=== PATIENT | male | born 1955 | race Hispanic/Latino ===

== ENCOUNTER 2017-10-28 20:00 | Inpatient (IN) | payer OTHER ==
[~2017-10-28] VITALS: Ht 172.7 cm; Wt 76.7 kg
[~2017-10-28 20:00] MED LIST: ALBUMIN (HUMAN) 25% 50 ML IV ONE; CALCIUM CHLORIDE 100 MG/ML 10 ML SYG IVP ONE; HEPARIN SODIUM 1000UNIT/ML 10ML VIAL IV ONE; LIDOCAINE PF 2% 5ML ABBOJECT IVP ONE; MANNITOL 25% 50ML VIAL IV ONE; PHENYLEPHRINE HCL 10 MG/ML 1ML VIAL IV ONE; SODIUM BICARB 8.4% 50ML SYRINGE IVP ONE
[2017-10-28 20:15] LABS: BASOPHILS % (AUTO) 0.2 % (0.0-5.0); EOSINOPHILS % (AUTO) 0.5 % (0.0-8.0); HEMATOCRIT 41.3 % (42-54); LYMPHOCYTES % (AUTO) 23.7 % (21.0-51.0); MEAN CORPUSCULAR HEMOGLOBIN 29.9 pg (27.0-33.0); MEAN CORPUSCULAR VOLUME 90.6 fL (79-99); MONOCYTES % (AUTO) 7.2 % (3.0-13.0); NEUTROPHILS % (AUTO) 68.4 % (40.0-77.0); PLATELET COUNT (AUTO) 239 K/uL (130-400); RED BLOOD CELL COUNT(AUTO) 4.55 MIL/uL (4.50-6.20); RED CELL DISTRIBUTION WIDTH 13.7 % (11.0-15.5); WHITE BLOOD COUNT (AUTO) 7.3 K/uL (4.8-10.8)
[2017-10-28] MEDS ORDERED: SODIUM CHLORIDE 0.9% 500ML 500 ML IV ONE (20:21)
[2017-10-28] MEDS ORDERED: NITROGLYCERIN 0.4 MG SL TAB SL ONE (20:21)
[2017-10-28] MEDS ORDERED: ASPIRIN 325 MG TABLET ONE (20:21)
[2017-10-28] MEDS ORDERED: METOPROLOL TARTRATE 25 MG TAB ONE (20:21)
[2017-10-28 20:29] LABS: INR 1.02 (0.85-1.15); PARTIAL THROMBOPLASTIN TIME 27.9 SEC (26.3-35.5); PROTHROMBIN TIME 10.7 SEC (9.6-11.6)
[2017-10-28 20:31] LABS: CREATININE 1.1 mg/dL (0.5-1.5); POTASSIUM 4.2 mmol/L (3.5-5.1)
[2017-10-28 20:44] LABS: ALBUMIN 3.6 g/dL (3.5-5.0); BILIRUBIN,TOTAL 0.8 mg/dL (0.2-1.0); CREATINE KINASE MB 18.3 ng/mL (0.5-3.6); TOTAL PROTEIN, SERUM 7.3 g/dL (6.0-8.3)
[2017-10-28] MEDS ORDERED: ENOXAPARIN SODIUM 100 MG/1 ML SQ ONE (21:50)
[2017-10-29] VITALS (18 sets, daily range): BP systolic 89–112; BP diastolic 56–75
[2017-10-29] MEDS ORDERED: ESOM20CA60 PO (03:18)
[2017-10-29 05:03] LABS: BASOPHILS % (AUTO) 0.4 % (0.0-5.0); EOSINOPHILS % (AUTO) 0.6 % (0.0-8.0); HEMATOCRIT 38.7 % (42-54); MEAN CORPUSCULAR HEMOGLOBIN 30.7 pg (27.0-33.0); MEAN CORPUSCULAR VOLUME 90.3 fL (79-99); MONOCYTES % (AUTO) 8.8 % (3.0-13.0); NEUTROPHILS % (AUTO) 58.2 % (40.0-77.0); NUCLEATED RED BLOOD CELLS 0.1 % (0.0-0.19); PLATELET COUNT (AUTO) 231 K/uL (130-400); RED BLOOD CELL COUNT(AUTO) 4.29 MIL/uL (4.50-6.20); RED CELL DISTRIBUTION WIDTH 13.8 % (11.0-15.5); WHITE BLOOD COUNT (AUTO) 6.4 K/uL (4.8-10.8)
[2017-10-29 05:33] LABS: ALBUMIN 3.2 g/dL (3.5-5.0); BILIRUBIN,TOTAL 0.7 mg/dL (0.2-1.0); CREATINE KINASE MB 10.6 ng/mL (0.5-3.6); CREATININE 1.1 mg/dL (0.5-1.5); MAGNESIUM 1.9 mg/dL (1.80-2.40); POTASSIUM 4.8 mmol/L (3.5-5.1); TOTAL PROTEIN, SERUM 6.6 g/dL (6.0-8.3)
[2017-10-29] MEDS ORDERED: ENOXAPARIN SODIUM 40 MG/0.4 ML SYRINGE SQ SCH (09:00)
[2017-10-29] MEDS ORDERED: METOPROLOL TARTRATE 25 MG TAB PO SCH (09:00)
[2017-10-29] MEDS: ASPIRIN 81MG TAB.CHEW PO SCH (09:00)
[2017-10-29 12:57] LABS: CREATINE KINASE MB 10.4 ng/mL (0.5-3.6)
[2017-10-29 13:02] LABS: TROPONIN I 4.11 ng/mL (0.00-0.06)
[2017-10-29] MEDS ORDERED: NITROGLYCERIN 5 MG/ML 10 ML VIAL IV ONE (15:21)
[2017-10-29] MEDS ORDERED: BIVALIRUDIN 250 MG/VIAL IV ONE (15:21)
[2017-10-29] MEDS ORDERED: LIDOCAINE HCL MPF 1% 5ML VIAL ONE (15:22)
[2017-10-29] MEDS ORDERED: IOHEXOL-350 50ML VIAL IV ONE (15:22)
[2017-10-29] MEDS ORDERED: IOHEXOL 350 MG/ML 100ML INFUS..BTL IV ONE (15:22)
[2017-10-29] MEDS ORDERED: FUROSEMIDE 10 MG/ML 2ML VIAL ONE (16:52)
[2017-10-29] MEDS ORDERED: NITROGLYCERIN 50 MG/D5% WATER 1 BOT ONE (16:52)
[2017-10-29] MEDS ORDERED: METOPROLOL TARTRATE 1 MG/ML 5ML VIAL IV ONE ×4 (17:23→17:37)
[2017-10-29 19:52] LABS: CHOLESTEROL 195 mg/dL (<200); HDL CHOLESTEROL 33 mg/dL (29-71); LDL DIRECT 140 mg/dL (0-99); TRIGLYCERIDES 166 mg/dL (30-200)
[2017-10-29 19:55] LABS: HEMOGLOBIN A1C 5.9 % (4.0-6.0)
[2017-10-29 20:54] LABS: APPEARANCE,URINE Clear (CLEAR); BILIRUBIN,URINE Negative (NEGATIVE); COLOR,URINE Yellow (YELLOW); GLUCOSE, URINE (UA) Negative (NEGATIVE); KETONES,URINE 15 mg/dL (NEGATIVE); LEUKOCYTE ESTERASE ,URINE Negative (NEGATIVE); NITRATE,URINE Negative (NEGATIVE); OCCULT BLOOD,URINE Negative (NEGATIVE); PROTEIN,URINE Negative (NEGATIVE)
[2017-10-29] MEDS ORDERED: METOPROLOL TARTRATE 50 MG TAB PO SCH (21:00)
[2017-10-29] MEDS ORDERED: ATORVASTATIN CALCIUM 40 MG TABLET PO SCH (21:00)
[2017-10-29] MEDS: METOPROLOL TARTRATE 25 MG TAB PO SCH (21:00)
[2017-10-30] VITALS (10 sets, daily range): BP systolic 91–108; BP diastolic 59–74
[2017-10-30 03:51] LABS: HEMATOCRIT 38.8 % (42-54); MEAN CORPUSCULAR HEMOGLOBIN 30.6 pg (27.0-33.0); MEAN CORPUSCULAR HGB CONC 33.5 g/dL (32.0-36.0); MEAN CORPUSCULAR VOLUME 91.4 fL (79-99); PLATELET COUNT (AUTO) 259 K/uL (130-400); RED BLOOD CELL COUNT(AUTO) 4.25 MIL/uL (4.50-6.20); RED CELL DISTRIBUTION WIDTH 13.9 % (11.0-15.5)
[2017-10-30 04:03] LABS: INR 1.05 (0.85-1.15); PARTIAL THROMBOPLASTIN TIME 28.2 SEC (26.3-35.5)
[2017-10-30 04:09] LABS: CREATININE 1.1 mg/dL (0.5-1.5); MAGNESIUM 1.9 mg/dL (1.80-2.40); POTASSIUM 4.8 mmol/L (3.5-5.1); TOTAL PROTEIN, SERUM 6.4 g/dL (6.0-8.3)
[2017-10-30] MEDS: ASPIRIN 81MG TAB.CHEW PO SCH (09:00)
[2017-10-30] MEDS: METOPROLOL TARTRATE 25 MG TAB PO SCH (10:05)
[2017-10-30] MEDS ORDERED: OCTYL 2-CYANOACRYLATE 1 EACH TP ONE (10:57)
[2017-10-30] MEDS ORDERED: EPINEPHRINE 1 MG/ML 30ML VIAL IJ ONE ×2 (10:57)
[2017-10-30] MEDS ORDERED: NITROGLYCERIN 50 MG/D5% WATER 1 BOT ONE (10:58)
[2017-10-30] MEDS ORDERED: BACITRACIN 50,000 UNIT VIAL ONE (10:58)
[2017-10-30] MEDS ORDERED: PAPAVERINE HCL 30 MG/ML 2ML VIAL ONE (10:58)
[2017-10-30] MEDS ORDERED: CEFUROXIME SODIUM 1.5 GM VIAL IVP PRN (11:00)
[2017-10-30] MEDS ORDERED: POTASSIUM CHLORIDE 20MEQ/100ML 0 ML IV ONE (11:11)
[2017-10-30] MEDS ORDERED: SODIUM BICARB 50MEQ 50ML VIAL ONE ×3 (11:11→17:34)
[2017-10-30] MEDS ORDERED: THROMBIN-JMI 5000 UNIT/VIAL TP ONE (12:15)
[2017-10-30] MEDS ORDERED: VASOPRESSIN 20 UNITS/ML 1ML VIAL ONE (12:23)
[2017-10-30] MEDS ORDERED: NOREPINEPHRINE BITARTRATE 1 MG/1 ML ML IV ONE ×2 (13:06→17:15)
[2017-10-30] MEDS ORDERED: LIDOCAINE PF 2% 5ML ABBOJECT ONE ×2 (13:06→14:42)
[2017-10-30] MEDS ORDERED: HEPARIN SODIUM 1000UNIT/ML 10ML VIAL ONE ×2 (13:06→20:17)
[2017-10-30] MEDS ORDERED: CEFUROXIME SODIUM 1.5 GM VIAL ONE ×2 (13:06→16:39)
[2017-10-30] MEDS ORDERED: ESMOLOL HCL 10 MG/ML 10 ML VIAL ONE (13:06)
[2017-10-30] MEDS ORDERED: AMINOCAPROIC ACID 250 MG/ML 20 ML VIAL IV ONE (13:06)
[2017-10-30] MEDS ORDERED: EPINEPHRINE 1 MG/ML AMPULE ONE (13:06)
[2017-10-30] MEDS ORDERED: FENTANYL CITRATE PF 50 MCG/1 ML 20ML VIAL IJ ONE ×3 (13:07→16:41)
[2017-10-30] MEDS ORDERED: PROPOFOL 10 MG/ML 20ML VIAL IV ONE (13:07)
[2017-10-30] MEDS ORDERED: MIDAZOLAM HCL 1 MG/ML 5ML VIAL ONE (13:07)
[2017-10-30] MEDS ORDERED: ROCURONIUM 10MG/1ML SYR 10 MG/ML ML ONE ×2 (13:08→16:40)
[2017-10-30] MEDS ORDERED: AMIODARONE HCL 50 MG/ML 3 ML VIAL ONE ×2 (13:46→17:36)
[2017-10-30] MEDS ORDERED: LIDOCAINE 2G/250ML 250 ML IV ONE (13:48)
[2017-10-30] MEDS ORDERED: DELNIDO FORMULA 0 BAG IV ONE (13:58)
[2017-10-30] MEDS ORDERED: AMIODARONE HCL 900 MG in DEXTROSE 5%-WATER 500 ML IV SCH (14:00)
[2017-10-30 14:20] LABS: ABG BASE EXCESS -3.2 mmol/L (-2.0-3.0); ABG HCO3 20.7 mmol/L (21.0-28.0); ABG OXYGEN SATURATION 98.5 % (95.0-99.0); ABG PCO2 33 mmHg (35-48)
[2017-10-30] MEDS ORDERED: DELNIDO FORMULA 1 BAG IV ONE (14:24)
[2017-10-30 14:45] LABS: ABG BASE EXCESS 0.2 mmol/L (-2.0-3.0); ABG HCO3 23.6 mmol/L (21.0-28.0); ABG OXYGEN SATURATION 98.7 % (95.0-99.0); ABG PCO2 34 mmHg (35-48)
[2017-10-30 15:26] LABS: ABG BASE EXCESS -2.6 mmol/L (-2.0-3.0); ABG HCO3 20.7 mmol/L (21.0-28.0); ABG OXYGEN SATURATION 98.8 % (95.0-99.0); ABG PCO2 31 mmHg (35-48)
[2017-10-30] MEDS ORDERED: PROTAMINE SULFATE 10 MG/ML 25ML VIAL IV ONE (15:38)
[2017-10-30] MEDS ORDERED: SODIUM CHLORIDE 0.9% 500ML 500 ML IV SCH (15:38)
[2017-10-30] MEDS ORDERED: TRAMADOL HCL 50 MG TABLET PO PRN ×2 (15:45)
[2017-10-30] MEDS ORDERED: POTASSIUM CHLORIDE 20MEQ/100ML 100 ML IV PRN (15:45)
[2017-10-30] MEDS ORDERED: SODIUM CHLORIDE 0.9% 1000ML 1,000 ML IV SCH (15:45)
[2017-10-30] MEDS ORDERED: ACETAMINOPHEN 325 MG TAB PO PRN (15:45)
[2017-10-30] MEDS ORDERED: NITROGLYCERIN 50 MG/D5% WATER 250 BOT IV SCH (15:45)
[2017-10-30] MEDS ORDERED: CALCIUM GLUCONATE 1 GM in SODIUM CHLORIDE 0.9% 50 ML IV PRN (15:45)
[2017-10-30] MEDS ORDERED: ALBUMIN (HUMAN) 5% 250 ML IV PRN (15:45)
[2017-10-30] MEDS ORDERED: EPINEPHRINE 8 MG in SODIUM CHLORIDE 0.9% 250 ML IV PRN (15:45)
[2017-10-30] MEDS ORDERED: AMINOCAPROIC ACID 15,000 MG in SODIUM CHLORIDE 0.9% 250 ML IV SCH (15:45)
[2017-10-30] MEDS ORDERED: SODIUM BICARB 50MEQ 50ML VIAL IV PRN (15:45)
[2017-10-30] MEDS ORDERED: SODIUM CHLORIDE 0.9% 10 ML VIAL IVP PRN (15:45)
[2017-10-30] MEDS ORDERED: INSULIN REGULAR, HUMAN 3ML 100 UNIT in SODIUM CHLORIDE 0.9% 99 ML IV SCH ×2 (15:45)
[2017-10-30] MEDS ORDERED: NOREPINEPHRINE 4MG/NS 250ML 250 ML IV PRN (15:45)
[2017-10-30] MEDS ORDERED: MORPHINE SULFATE 4 MG/1ML SYG IV PRN (15:45)
[2017-10-30] MEDS ORDERED: SODIUM CHLORIDE 0.9% 250 ML IV PRN (15:45)
[2017-10-30] MEDS ORDERED: MAGNESIUM 2GM PREMIX 50ML 50 ML IV PRN (15:45)
[2017-10-30] MEDS ORDERED: ACETAMINOPHEN 650 MG SUPPOSITORY RC PRN (15:45)
[2017-10-30] MEDS ORDERED: DEXTROSE 50%-WATER 50 ML DISP.SYRIN IV PRN (15:45)
[2017-10-30] MEDS ORDERED: GLUCAGON 1MG KIT 1 MG ML IM PRN (15:45)
[2017-10-30] MEDS ORDERED: ONDANSETRON HCL 4 MG/2 ML VIAL IV PRN (15:45)
[2017-10-30] MEDS ORDERED: POTASSIUM PHOS 15 mMOL+NS250ML 250 ML IV PRN (15:45)
[2017-10-30] MEDS ORDERED: MORPHINE SULFATE 2 MG/ML 1ML SYG IV PRN (15:45)
[2017-10-30] MEDS ORDERED: PROPOFOL 1000 MG/100 ML 100 ML IV PRN (15:45)
[2017-10-30 15:57] LABS: ABG BASE EXCESS -3.1 mmol/L (-2.0-3.0); ABG HCO3 20.6 mmol/L (21.0-28.0); ABG OXYGEN SATURATION 98.9 % (95.0-99.0); ABG PCO2 32 mmHg (35-48)
[2017-10-30 16:31] LABS: ABG BASE EXCESS 0.1 mmol/L (-2.0-3.0); ABG HCO3 23.3 mmol/L (21.0-28.0); ABG OXYGEN SATURATION 98.7 % (95.0-99.0); ABG PCO2 32 mmHg (35-48)
[2017-10-30 17:07] LABS: ABG BASE EXCESS -5.3 mmol/L (-2.0-3.0); ABG HCO3 19.5 mmol/L (21.0-28.0); ABG OXYGEN SATURATION 98.4 % (95.0-99.0); ABG PCO2 35 mmHg (35-48)
[2017-10-30 17:32] LABS: ABG BASE EXCESS -3.5 mmol/L (-2.0-3.0); ABG HCO3 19.2 mmol/L (21.0-28.0); ABG OXYGEN SATURATION 98.7 % (95.0-99.0); ABG PCO2 27 mmHg (35-48)
[2017-10-30] MEDS ORDERED: SODIUM BICARB 8.4% 50ML SYRINGE ONE (17:32)
[2017-10-30 17:56] LABS: ABG BASE EXCESS 2.5 mmol/L (-2.0-3.0); ABG HCO3 23.2 mmol/L (21.0-28.0); ABG OXYGEN SATURATION 98.6 % (95.0-99.0); ABG PCO2 24 mmHg (35-48)
[2017-10-30] MEDS ORDERED: FAMOTIDINE/PF 20 MG/2 ML VIAL IV SCH (21:00)
[2017-10-31] MEDS ORDERED: CEFUROXIME SODIUM 1.5 GM VIAL IVP SCH (01:00)
== END 2017-10-30 18:44 | disposition expired | DRG 217 ==
LOC: EDH 20:00 → OBSVTOIN 20:01 → EDHIP 20:01 → 4BH 10-29 02:07 → 2CH 10-29 18:01 → 2CV 10-30 14:17
PROVIDERS: ADMIT Internal Medicine Infectious Disease; ATTEND Internal Medicine Infectious Disease
PROC: 4A023N7 Measurement of Cardiac Sampling and Pressure, Left Heart, Percutaneous Approach (ICD-10-PCS; 2017-10-29)
PROC: B2111ZZ Fluoroscopy of Multiple Coronary Arteries using Low Osmolar Contrast (ICD-10-PCS; 2017-10-29)
PROC: B2151ZZ Fluoroscopy of Left Heart using Low Osmolar Contrast (ICD-10-PCS; 2017-10-29)
PROC: B41F1ZZ Fluoroscopy of Right Lower Extremity Arteries using Low Osmolar Contrast (ICD-10-PCS; 2017-10-29)
PROC: 06BQ3ZZ Excision of Left Saphenous Vein, Percutaneous Approach (ICD-10-PCS; 2017-10-30)
PROC: 30233N1 Transfusion of Nonautologous Red Blood Cells into Peripheral Vein, Percutaneous Approach (ICD-10-PCS; 2017-10-30)
PROC: 30233L1 Transfusion of Nonautologous Fresh Plasma into Peripheral Vein, Percutaneous Approach (ICD-10-PCS; 2017-10-30)
PROC: 30233K1 Transfusion of Nonautologous Frozen Plasma into Peripheral Vein, Percutaneous Approach (ICD-10-PCS; 2017-10-30)
PROC: 5A1221Z Performance of Cardiac Output, Continuous (ICD-10-PCS; 2017-10-30)
PROC: 021309W Bypass Coronary Artery, Four or More Arteries from Aorta with Autologous Venous Tissue, Open Approach (ICD-10-PCS; principal; 2017-10-30 13:05)
PROC: 5A0221D Assistance with Cardiac Output using Impeller Pump, Continuous (ICD-10-PCS; 2017-10-30 13:05)
DX: I21.4 Non-ST elevation (NSTEMI) myocardial infarction (principal); I47.2 Ventricular tachycardia; I25.10 Atherosclerotic heart disease of native coronary artery without angina pectoris; I49.01 Ventricular fibrillation; I50.9 Heart failure, unspecified; Z82.49 Family history of ischemic heart disease and other diseases of the circulatory system; I46.9 Cardiac arrest, cause unspecified; I95.9 Hypotension, unspecified; Z90.89 Acquired absence of other organs; Z28.21 Immunization not carried out because of patient refusal
CPT/HCPCS: 36415; 71045; 76000; 80053; 80061; 81003; 82330; 82435; 82550; 82553; 82803; 82947; 83036; 83605; 83735; 83874; 83880; 84132; 84295; 84484; 85018; 85025; 85027; 85610; 85730; 86850; 86900; 86901; 86922; 86927; 93005; 93306; 93458; 93880; 99291; A4218; A7048; C1760; C1769; C1894; J0171; J0282; J0583; J0697; J1644; J1650; J1815; J1940; J2001; J2150; J2250; J2370; J2440; J2704; J2720; J3010; J3480; J3490; J7030; J7040; J7060; J7120; P9016; P9017; P9047; Q9967